=== PATIENT | female | born 1950 | race African-American/Black ===

== ENCOUNTER 2016-08-09 15:46 | Inpatient (IN) | payer OTHER ==
[~2016-08-09] VITALS: Ht 160 cm; Wt 78.9 kg
--- NOTE | ~2016-08-09 | EKG ---
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 : 1950 Requested By: Juliana Salter Order Number: [id number] MD: Gray Carlson Measurements Intervals [place] Rate: 85 P: 42 AR: 156 QRS: 216 QRSD: 129 T: 35 QT: 479 QTc: 570 Interpretive Statements Atrial-sensed ventricular-paced rhythm No further analysis attempted due to paced rhythm Compared to ECG 04/28/2016 10:46:34 No significant changes Electronically Signed On 08-11-2016 15:14:55 CDT by Gray Carlson [email or web address] <ELECTRONICALLY SIGNED> By: Gray Carlson MD, [facility] 08/11/16 1514 0807 0807 Gray Carlson MD, [facility] /EPI
--- NOTE | ~2016-08-09 | EKG ---
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 08/11/16 1508 1646 1646 Gray Carlson MD, [facility] /EPI
--- NOTE | ~2016-08-09 | HC ---
[facility] [place] [address] CONSULTATION Name: SULEIMAN MOROCHO Room #: 204-P ADM IN M.R.#: [id number] Admission: 08/09/16 Attend Phys: Dg Huizar MD Discharge: Date of : 50 Report #: [id number] THIS REPORT FOR: //name// CC: Dg Farah HISTORY OF PRESENT ILLNESS: The patient is a 65-year-old female, who is followed by my partner, Dr. Gray Carlson. She is admitted with a month history of recurrent bronchitis and now possibly some volume overload. 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 She has had long hospitalizations dating back to late last year, at the end of March. She has been in a fpc and then was home here recently. She does have a history of paroxysmal AFib, was previously anticoagulated, but not currently. She has BiV pacer and has prior cardioversion. Acute on chronic systolic failure with EF reportedly 30% range and is felt to be nonischemic. Underlying COPD, chronic kidney disease by history. Her medications have questionable some compliance issues with torsemide, which was 40 in the morning and possibly another 20 in the afternoon at times she would not, metolazone, amiodarone was unclear, Aldactone 50 mg total, Coreg 3.125 b.i.d. She tries to watch her salt and fluid, but I guess this is probably marginal. In compliance catheterization in 02/2016, normal coronary arteries. Ejection fraction was in the 30% range. She had a DON cardioversion done 04/09/2016, EF was felt to be even lower in 20% to 25%, dilated atrium. She had been fairly well compliant. She lives completely independently. She has one estranged daughter and she states she was never . FAMILY HISTORY: Positive including her mother and father with coronary artery disease, but could not be more specific. SOCIAL HISTORY: No current alcohol or tobacco. She lives alone. She has one daughter and never . REVIEW OF SYSTEMS: Essentially negative except for stated above and has progressive weakness, dyspnea, cough; has been treated with antibiotics and cough syrup. LABORATORY WORK: Sodium 136, potassium 2.6 being corrected, creatinine 1.2, BUN 10. Liver function tests look relatively normal. Troponin was 0.9, this is not significant. BNP 5300, probably not far off of her baseline, this was higher previously. Does not look like she is on Coumadin, which she denies that she is. H and H 11.7 and 35 with a white count 4.5. Chest x-ray suggests cardiomegaly and volume overload. PHYSICAL EXAMINATION: VITAL SIGNS: Her pulse is 76, blood pressure 140/86. HEENT: Eyes reveal xanthelasmas. Pharynx is clear. [address] [address] CONSULTATION Name: SULEIMAN MOROCHO Room #: 204-P [facility] IN M.R.#: [id number] Admission: 08/09/16 Attend Phys: Dg Huizra MD Discharge: Date of : 50 Report #: [id number] NECK: Shows preserved upstrokes. I do not appreciate significant JVD or bruits. LUNGS: Few fine basilar crackles, diminished in the bases. CARDIOVASCULAR: Regular rate and rhythm, S1 and S2, holosystolic murmur. ABDOMEN: Soft, slightly protuberant. EXTREMITIES: Reveal trace of edema. Pulses diminished. NEUROLOGIC: Nonfocal. SKIN: Warm and dry without xanthoma or ulcer. MUSCULOSKELETAL: Generalized arthritic changes. ASSESSMENT: 1. Acute on chronic systolic heart failure. 2. Recurrent bronchitis. 3. Nonischemic dilated cardiomyopathy, normal coronary anatomy on a catheterization in February 2016. 4. Some question of orthostatic hypotension, had been previously on midodrine, this is of question currently, obviously needs diuresis and afterload reducers. 5. Degenerative joint disease. 6. Chronic kidney disease. 7. Hypokalemia, currently on replacement. 8. Paroxysmal atrial fibrillation. 9. Orthostatic hypotension. RECOMMENDATIONS AND PLAN: I agree with the diuresis. We will possibly continue midodrine. I think we will have to reevaluate the need for Coumadin here and anticoagulation. Risks, benefits to her is not clear why this was stopped. We will discuss with Dr. Carlson, who may have a better handle since he is more recently seen her. We will admit to the CCU for IV Lasix. Could consider repeating the echo Doppler, although I suspect he will not look significantly different. Continue to follow with you. <ELECTRONICALLY SIGNED> By: Faraz Toney MD, FACC 08/12/16 [phone] Faraz Toney MD, FACC /nt
[~2016-08-09 15:46] MED LIST: ADULT LOW DOSE81 MG PO; ADVAIR 250-501 EACH INH; ADVAIR HFA 45-218 GM IH; ADVAIR HFA115 MCG/21 INH; ALDACTONE25 MG PO; ALDACTONE50 MG PO; ALTACE10 M1 PO; ALTACE10 MG PO; AMARYL4 MG PO; ASPIR 8181 MG PO; ASPIRIN EC325 M1 PO; ASPIRIN EC81 M1 PO; CARVEDILOL25 MG PO; CARVEDILOL6.25 MG PO; COLACE100 MG PO; COMBIVENT INH; COREG; COREG CR20 MG PO; COREG3.125 MG PO; COUMADIN 3 MG TA3 M1 PO; DEMADEX20 MG PO; FISH OIL 1,0001 EAC5 PO; FLOMAX0.4 MG PO; FUROSEMIDE 40 M40 M1 PO; GARLIC OIL1 EACH PO; GARLIC PO; HUMALOG100 UNIT/1 SUBQ; HUMULINR100; HUMULINU500; HUMULINU500 SUBQ; HYDROCODONE-AP1 EAC6 PO; IBUPROFEN 800800 MG PO; JANUVIA100 MG PO; K-TAB ER20 MEQ PO; KEFLEX500 MG PO; LANOXIN 0.120.125 M3 PO; LANOXIN 0.250.25 M1 PO; LANSOPRAZOLE30 MG PO; LANTUS SC; LANTUS SOL100 UNIT/1 SQ; LANTUS SUBQ; LANTUS100 UNIT/M SUBQ; LASIX 40 MG TAB40 M2 PO; LEVAQUIN 500 M500 MG PO; LEVEMIR SUBQ; LUMIGAN2.5 M1 OP; LUMIGAN2.5 M1 OPHTHALMIC; METOCLOPRAMIDE 55 M1 PO; METOLAZONE 2.52.5 MG PO; MIDODRINE HCL 55 M1 PO; MUCINEX TA600 MG/TA1 PO; MUCINEX600 MG PO; NATURAL VITA100 UNIT PO; NEURONTIN 300300 M1 PO; NOVOLIN R100 UNIT/3 IJ; NOVOLOG100 UNIT/1 SUBQ; ODOR FREE GARL1 EAC1 PO; ODORLESS GARLI500 MG PO; OMEGA-3 FISH1000 MG PO; PACERONE 200 M200 M1 PO; PACERONE 200 M200 MG PO; PEPCID20 MG PO; PERCOCET PO; POTASSIUM20 PO; PREVACID15 MG PO; PREVACID30 M1 PO; PREVACID30 MG PO; PROVENTIL HFA6.7 G1 INH; REMERON15 MG PO; SIMETHICON CHEW80 M1 PO; SYMBICORT160 MCG/4. INH; TYLENOL325 MG PO; VENTOLIN HFA 1818 GM INH; VITAMIN E400 UNIT PO; ZOFRAN ODT4 MG PO; ZYRTEC10 M2 PO; [UNRECOGNIZED DRUG - OTHER] IV; [UNRECOGNIZED DRUG - OTHER] MM
[2016-08-09 15:53] VITALS: BP 142/86
[2016-08-09 17:20] LABS: ABSOLUTE NEUTROPHILS 3.3 thou/uL (1.4-8.2); BASOPHILS 0.8 % (0.0-2.0); EOSINOPHILS 1.3 % (0.0-3.0); HEMATOCRIT 35.1 % (37.0-47.0); HEMOGLOBIN 11.7 gm/dL (12.0-15.0); LYMPHOCYTES 14.3 % (24.0-44.0); MCH 28.7 pg (26.0-34.0); MCHC 33.2 g/dL (28.0-37.0); MCV 86.4 fL (80.0-100.0); MONOCYTES 10.9 % (1.0-8.0); PLATELET COUNT 196 thou/uL (150-400); POLYS 72.7 % (36.0-66.0); RBC 4.06 mil/uL (4.20-5.00); RDW 15.2 % (10.5-14.5); WBC 4.5 thou/uL (4.0-11.0)
[2016-08-09 17:21] LABS: MANUAL DIFF NO
[2016-08-09 17:37] LABS: ALBUMIN 3.2 g/dL (3.4-5.0); CALCIUM 8.6 mg/dL (8.5-10.1); CREATININE 1.2 mg/dL (0.6-1.3); TOTAL BILIRUBIN 0.9 mg/dL (<0.1-1.0); TOTAL PROTEIN 7.2 g/dL (6.4-8.2)
[2016-08-09 17:45] LABS: POTASSIUM 2.6 mmol/L (3.5-5.1); TROPONIN-I 0.9 ng/mL (<0.04-0.07)
[2016-08-09 18:08] LABS: INR 1.1; PROTIME 11.4 Seconds (9.3-11.4)
[2016-08-09 19:41] VITALS: BP 118/81
[2016-08-09 20:14] VITALS: BP 126/83
[2016-08-09 23:42] VITALS: BP 126/69
[2016-08-10] MEDS ORDERED: ALTACE10 MG PO (02:22)
[2016-08-10] MEDS ORDERED: MUCINEX TA600 MG/TA2 PO (02:23)
[2016-08-10 04:36] VITALS: BP 123/86
[2016-08-10] MEDS ORDERED: DIGOXIN250 MCG PO (05:17)
[2016-08-10 06:36] LABS: HEMATOCRIT 34.4 % (37.0-47.0); HEMOGLOBIN 11.3 gm/dL (12.0-15.0); MCH 28.8 pg (26.0-34.0); MCV 87.4 fL (80.0-100.0); RBC 3.94 mil/uL (4.20-5.00); RDW 15.1 % (10.5-14.5); WBC 3.3 thou/uL (4.0-11.0)
[2016-08-10 08:00] VITALS: BP 123/74
[2016-08-10 08:12] LABS: CALCIUM 8.7 mg/dL (8.5-10.1); CREATININE 1.2 mg/dL (0.6-1.3); POTASSIUM 3.4 mmol/L (3.5-5.1)
[2016-08-10 11:40] VITALS: BP 122/73
[2016-08-10 15:44] VITALS: BP 137/83
[2016-08-10 19:43] VITALS: BP 107/72
[2016-08-11 05:34] VITALS: BP 112/78
[2016-08-11 06:23] LABS: HEMATOCRIT 37.4 % (37.0-47.0); HEMOGLOBIN 12.2 gm/dL (12.0-15.0); MCH 28.4 pg (26.0-34.0); MCHC 32.6 g/dL (28.0-37.0); MCV 87.2 fL (80.0-100.0); RBC 4.29 mil/uL (4.20-5.00); RDW 15.7 % (10.5-14.5); WBC 4.4 thou/uL (4.0-11.0)
[2016-08-11 06:29] LABS: CALCIUM 9.1 mg/dL (8.5-10.1); CREATININE 1.3 mg/dL (0.6-1.3)
[2016-08-11 06:32] LABS: POTASSIUM 5.1 mmol/L (3.5-5.1)
[2016-08-11 08:01] VITALS: BP 103/69
[2016-08-11] MEDS ORDERED: LANTUS100 UNIT/M SUBQ (10:29)
[2016-08-11] MEDS ORDERED: HUMULIN R100 UNIT/M SUBQ (10:33)
[2016-08-11 11:23] VITALS: BP 121/83
[2016-08-11 15:21] VITALS: BP 80/49
[2016-08-11 20:01] VITALS: BP 121/73
[2016-08-12 03:15] VITALS: BP 106/28
[2016-08-12 05:26] LABS: MCH 28.5 pg (26.0-34.0); MCHC 32.4 g/dL (28.0-37.0); MCV 87.8 fL (80.0-100.0); RBC 4.22 mil/uL (4.20-5.00); RDW 15.2 % (10.5-14.5); WBC 4.5 thou/uL (4.0-11.0)
[2016-08-12 05:34] LABS: CALCIUM 8.9 mg/dL (8.5-10.1); CREATININE 1.9 mg/dL (0.6-1.3); POTASSIUM 4.5 mmol/L (3.5-5.1)
[2016-08-12 05:39] LABS: INR 1.2; PROTIME 12.6 Seconds (9.3-11.4)
[2016-08-12 08:29] VITALS: BP 121/79
[2016-08-12 12:29] VITALS: BP 107/72
[2016-08-12 17:10] VITALS: BP 107/72
[2016-08-12 19:33] VITALS: BP 99/61
[2016-08-13 03:54] VITALS: BP 118/77
[2016-08-13 07:20] VITALS: BP 103/65
[2016-08-13 08:11] LABS: HEMATOCRIT 38.2 % (37.0-47.0); HEMOGLOBIN 12.5 gm/dL (12.0-15.0); MCH 28.4 pg (26.0-34.0); MCHC 32.7 g/dL (28.0-37.0); MCV 87.1 fL (80.0-100.0); RBC 4.39 mil/uL (4.20-5.00); RDW 15.6 % (10.5-14.5); WBC 3.7 thou/uL (4.0-11.0)
[2016-08-13 08:21] LABS: CALCIUM 9.5 mg/dL (8.5-10.1); CREATININE 1.9 mg/dL (0.6-1.3); POTASSIUM 4.4 mmol/L (3.5-5.1)
[2016-08-13 08:25] LABS: INR 1.3; PROTIME 13.1 Seconds (9.3-11.4)
[2016-08-13 11:30] VITALS: BP 106/70
[2016-08-13 16:45] VITALS: BP 117/60
[2016-08-13 19:33] VITALS: BP 129/73
[2016-08-14 05:33] VITALS: BP 105/65
[2016-08-14 07:09] LABS: HEMATOCRIT 33.9 % (37.0-47.0); HEMOGLOBIN 11.3 gm/dL (12.0-15.0); MCH 28.6 pg (26.0-34.0); MCHC 33.2 g/dL (28.0-37.0); MCV 86.2 fL (80.0-100.0); RBC 3.94 mil/uL (4.20-5.00); RDW 15.1 % (10.5-14.5); WBC 3.2 thou/uL (4.0-11.0)
[2016-08-14 07:25] LABS: CALCIUM 9.2 mg/dL (8.5-10.1); CREATININE 2.1 mg/dL (0.6-1.3); POTASSIUM 4.5 mmol/L (3.5-5.1)
[2016-08-14 07:45] LABS: INR 1.2; PROTIME 12.7 Seconds (9.3-11.4)
[2016-08-14] MEDS ORDERED: DEMADEX20 MG PO (08:19)
[2016-08-14] MEDS ORDERED: METOLAZONE 2.52.5 MG PO (08:19)
[2016-08-14 11:45] VITALS: BP 113/79
[2016-08-14 13:39] VITALS: BP 105/65
[2016-08-14 13:58] VITALS: BP 105/65
== END 2016-08-14 17:08 | disposition home health service (06) | DRG 291 ==
LOC: ER 15:46 → EROBS 18:34 → 2N 18:34
PROVIDERS: Hospitalist; Internal Medicine; Internal Medicine Cardiovascular Disease; Nurse Practitioner Family
DX: I13.0 Hypertensive heart and chronic kidney disease with heart failure and stage 1 through stage 4 chronic kidney disease, or unspecified chronic kidney disease (principal); I50.23 Acute on chronic systolic (congestive) heart failure; J96.10 Chronic respiratory failure, unspecified whether with hypoxia or hypercapnia; E11.65 Type 2 diabetes mellitus with hyperglycemia; J44.9 Chronic obstructive pulmonary disease, unspecified; E11.40 Type 2 diabetes mellitus with diabetic neuropathy, unspecified; H40.9 Unspecified glaucoma; I42.0 Dilated cardiomyopathy; I48.0 Paroxysmal atrial fibrillation; N18.9 Chronic kidney disease, unspecified; E11.22 Type 2 diabetes mellitus with diabetic chronic kidney disease; E87.6 Hypokalemia; M19.90 Unspecified osteoarthritis, unspecified site; I95.1 Orthostatic hypotension; K59.00 Constipation, unspecified; E66.9 Obesity, unspecified; Z68.30 Body mass index [BMI] 30.0-30.9, adult; Z98.1 Arthrodesis status; Z95.810 Presence of automatic (implantable) cardiac defibrillator; Z90.710 Acquired absence of both cervix and uterus; Z91.018 Allergy to other foods; Z88.8 Allergy status to other drugs, medicaments and biological substances; Z91.048 Other nonmedicinal substance allergy status; Z91.040 Latex allergy status; Z82.49 Family history of ischemic heart disease and other diseases of the circulatory system; Z83.3 Family history of diabetes mellitus; Z79.01 Long term (current) use of anticoagulants; Z79.4 Long term (current) use of insulin; Z79.82 Long term (current) use of aspirin; Z79.899 Other long term (current) drug therapy
CPT/HCPCS: 10081

== ENCOUNTER 2016-09-25 12:08 | Inpatient (IN) | payer OTHER ==
[~2016-09-25] VITALS: Ht 157.5 cm; Wt 77.9 kg
--- NOTE | ~2016-09-25 | EKG ---
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
--- NOTE | ~2016-09-25 | S ---
[facility] [place] [address] SURGICAL PATH RPT PROCEDURE Name: SULEIMAN MOROCHO LUIS Room #: 452-P DIS IN M.R.#: [id number] Admission: 09/25/16 Date of : 50 Discharge: 10/03/16 Report #: [id number] Path Case #: [id number] PATHOLOGY REPORT COLLECTION DATE: 10/01/2016 RECEIVED DATE: 10/02/2016 SUBMITTING PHYS: Dr. Frannie Purdy OTHER PHYS: Dr. Chau Mcdonald SPECIMEN(S) RECEIVED: A.Duodenal bx B.Gastric bx * * * * * * * * * * * * FINAL DIAGNOSIS: A. "Duodenal bx," biopsy: - Small bowel / duodenal mucosa with minimal histologic alterations; no evidence of celiac sprue. B. "Gastric bx," biopsy: - Gastric mucosa with mild chronic gastritis. - Negative H. pylori immunohistochemical stain (block B1); control reacted appropriately. (CLW:; d/t: 10/04/16) PATHOLOGIST: Leticia Harrison M.D. REPORT ELECTRONICALLY SIGNED BY: Leticia Harrison M.D. DATE/TIME: 10/04/2016 14:01 * * * * * * * * * * * * GROSS PATHOLOGY: A. Received in formalin labeled "Suleiman Chambersbrian duodenal biopsy," are 4 segments of yañez soft tissue measuring 0.9 x 0.6 x 0.3 cm in aggregate dimensions and ranging from 0.3 to 0.4 cm in maximum dimension. The specimen is submitted entirely in cassette A1. B. Received in formalin labeled "Suleiman Morocho, gastric biopsy," are 4 segments of yañez soft tissue measuring 0.6 x 0.6 x 0.3 cm in aggregate dimensions and ranging from 0.2 to 0.6 cm in maximum dimension. The specimen is submitted entirely in cassette B1. (KAH; 10/03/2016) CLINICAL HISTORY: N/V, abdominal pain INITIAL CPT CODE(S): [address] [address] SURGICAL PATH RPT PROCEDURE Name: SULEIMAN MOROCHO Room #: 452-P DIS IN M.R.#: [id number] Admission: 09/25/16 Date of : 50 Discharge: 10/03/16 Report #: [id number] Path Case #: [id number]; [id number] B; [id number] Professional services performed by [facility] at [address] , [place] [address] Technical services performed by [facility] at [address] [place] [address], [facility] [address] [address]. [facility] [address] [place] [address] PHONE: [phone] DIRECTOR: Zeus Estrada M.D. * * * END OF REPORT * * *
--- NOTE | ~2016-09-25 | P ---
[facility] [place] [address] PROCEDURE REPORT Name: SULEIMAN MOROCHOTH Room #: 452-P [facility] IN M.R.#: [id number] Admission: 09/25/16 Attend Phys: Luis Miguel Lechuga MD Discharge: 10/03/16 Date of : 50 Report #: [id number] THIS REPORT FOR: //name// CC: Agustín Perez DATE OF SERVICE: 10/01/2016 PROCEDURE PERFORMED: Upper endoscopy with biopsies. HISTORY OF PRESENT ILLNESS: The patient is a 66-year-old female with nausea, vomiting, abdominal pain. She has had a long history of this. During this hospital stay, she underwent a gastric emptying study, which was normal. Also, ultrasound with Dopplers were negative. Last upper endoscopy a couple of years ago. Plan is for EGD. DESCRIPTION OF PROCEDURE: The risks and benefits of the procedure were explained to the patient, those risks including but not limited to bleeding, perforation, the risk of sedation. She understood these risks and gave informed consent. Sedation was given using propofol per anesthesia. Next, using a standard [employer] upper endoscope, the scope was placed in the patient's mouth and advanced under direct vision through the esophagus, stomach and into the second portion of the duodenum. The esophagus was normal throughout. The GE junction was normal. There was a moderate gastritis noted in the fundus and upper body. No evidence of bleeding or ulcerations. Biopsies were obtained to rule out H. pylori. The gastric antrum and pylorus were normal. There was a small amount of fluid within the stomach, but no food material. The duodenal bulb, first and second portion were all normal. Biopsies were obtained in the second portion to rule out the possibility of celiac sprue. The scope was then withdrawn and the procedure terminated. The patient tolerated the procedure well. IMPRESSION: 1. Moderate gastritis. 2. Otherwise, normal upper endoscopy. RECOMMENDATIONS: 1. The patient was just started on Reglan recently before meals in the evening, would continue this. 2. We will switch from Pepcid to Protonix. 3. Await biopsy results and we will advance diet as tolerated. [address] [address] PROCEDURE REPORT Name: SULEIMAN MOROCHO Room #: 452-P DIS IN M.R.#: [id number] Admission: 09/25/16 Attend Phys: Luis Miguel Lechuga MD Discharge: 10/03/16 Date of : 50 Report #: [id number] Thank you for allowing me to participate in her care. <ELECTRONICALLY SIGNED> By: Wei Miranda MD 10/05/16 0952 1355 1600 Wei Miranda MD /nt
[~2016-09-25 12:08] MED LIST changes: +DIGOXIN250 MCG PO; +HUMULIN R100 UNIT/M SUBQ; +MUCINEX TA600 MG/TA2 PO
[2016-09-25 12:09] VITALS: BP 166/102
[2016-09-25 13:57] LABS: HEMATOCRIT 29.8 % (37.0-47.0); HEMOGLOBIN 8.9 gm/dL (12.0-15.0); MCH 28.2 pg (26.0-34.0); MCHC 29.7 g/dL (28.0-37.0); RBC 3.14 mil/uL (4.20-5.00); RDW 14.8 % (10.5-14.5); WBC 2.5 thou/uL (4.0-11.0)
[2016-09-25 13:59] LABS: URINE BILIRUBIN NEGATIVE (Negative); URINE BLOOD TRACE (Negative); URINE COLOR YELLOW; URINE GLUCOSE-RANDOM* NEGATIVE (Negative); URINE KETONES NEGATIVE (Negative); URINE LEUKOCYTES-REFLEX NEGATIVE (Negative); URINE PROTEIN (DIPSTICK) TRACE (Negative); URINE SPECIFIC GRAVITY 1.015 (1.003-1.035); URINE UROBILINOGEN 0.2 E.U./dl (0.2-1.0)
[2016-09-25 14:00] LABS: MANUAL DIFF YES
[2016-09-25 14:12] LABS: APTT 45.6 Seconds (24.5-32.8); INR 1.4; PROTIME 14.1 Seconds (9.3-11.4)
[2016-09-25 14:17] LABS: BUN 26 mg/dL (7-18); CHLORIDE 83 mmol/L (98-107); CO2 15 mmol/L (21-32); CREATININE 1.5 mg/dL (0.6-1.0); NT-PRO BRAIN NAT PEPTIDE 1154 pg/mL (<300); TROPONIN-I 0.51 ng/mL (<0.04-0.07)
[2016-09-25 14:19] LABS: ANION GAP 9 mmol/L (7-16)
[2016-09-25 14:25] LABS: POTASSIUM 2.3 mmol/L (3.5-5.1)
[2016-09-25 14:26] LABS: CALCIUM < 5.0 mg/dL (8.5-10.1); SODIUM 107 mmol/L (136-145)
[2016-09-25 14:37] LABS: ABSOLUTE NEUTROPHILS 1.8 thou/uL (1.4-8.2); PLATELET COUNT 98 thou/uL (150-400); TOTAL CELL COUNT 100
[2016-09-25 14:48] LABS: GLUCOSE 1917 mg/dL (74-106)
[2016-09-25 15:31] LABS: CREATININE 1.4 mg/dL (0.6-1.0)
[2016-09-25 15:33] LABS: CALCIUM 8.1 mg/dL (8.5-10.1); POTASSIUM 4.5 mmol/L (3.5-5.1)
[2016-09-25 17:38] VITALS: BP 127/70
[2016-09-25 18:25] VITALS: BP 134/75
[2016-09-25 19:18] LABS: HEMATOCRIT 39.9 % (37.0-47.0); MCH 27.5 pg (26.0-34.0); MCHC 33.6 g/dL (28.0-37.0); RBC 4.87 mil/uL (4.20-5.00); RDW 14.5 % (10.5-14.5); WBC 5.3 thou/uL (4.0-11.0)
[2016-09-25 19:22] VITALS: BP 143/86
[2016-09-25 19:26] LABS: HEMOGLOBIN 13.4 gm/dL (12.0-15.0); MCV 81.9 fL (80.0-100.0)
[2016-09-25 19:41] LABS: ALBUMIN 3.5 g/dL (3.4-5.0); CALCIUM 8.2 mg/dL (8.5-10.1); CREATININE 1.5 mg/dL (0.6-1.0); POTASSIUM 4.9 mmol/L (3.5-5.1); TOTAL BILIRUBIN 0.5 mg/dL (<0.1-1.0); TOTAL PROTEIN 7.3 g/dL (6.4-8.2)
[2016-09-25 23:52] VITALS: BP 116/58
[2016-09-26 03:58] VITALS: BP 137/72
[2016-09-26 07:00] VITALS: BP 157/91
[2016-09-26 20:15] VITALS: BP 165/95
[2016-09-27 00:04] VITALS: BP 159/91
[2016-09-27 05:00] VITALS: BP 115/51
[2016-09-27 06:07] LABS: HEMATOCRIT 38.7 % (37.0-47.0); MCH 27.5 pg (26.0-34.0); MCHC 33.5 g/dL (28.0-37.0); MCV 82.1 fL (80.0-100.0); PLATELET COUNT 155 thou/uL (150-400); RBC 4.72 mil/uL (4.20-5.00); RDW 14.5 % (10.5-14.5); WBC 7.9 thou/uL (4.0-11.0)
[2016-09-27 06:15] LABS: CALCIUM 8.7 mg/dL (8.5-10.1); CREATININE 1.4 mg/dL (0.6-1.0); MANUAL DIFF YES; POTASSIUM 5.4 mmol/L (3.5-5.1)
[2016-09-27 07:28] LABS: ABSOLUTE NEUTROPHILS 6.4 thou/uL (1.4-8.2); TOTAL CELL COUNT 100
[2016-09-27 07:29] LABS: ANISOCYTOSIS SLIGHT
[2016-09-27 09:04] VITALS: BP 137/81
[2016-09-27 12:20] VITALS: BP 136/78
[2016-09-27 14:36] VITALS: BP 136/78
[2016-09-27 19:25] VITALS: BP 120/66
[2016-09-28 03:57] VITALS: BP 121/60
[2016-09-28 05:39] LABS: HEMATOCRIT 38.7 % (37.0-47.0); MCH 27.7 pg (26.0-34.0); MCHC 33.7 g/dL (28.0-37.0); MCV 82.1 fL (80.0-100.0); PLATELET COUNT 122 thou/uL (150-400); RBC 4.71 mil/uL (4.20-5.00); RDW 15.2 % (10.5-14.5); WBC 7.4 thou/uL (4.0-11.0)
[2016-09-28 05:41] LABS: MANUAL DIFF YES
[2016-09-28 06:13] LABS: ALBUMIN 3.5 g/dL (3.4-5.0); CALCIUM 8.3 mg/dL (8.5-10.1); CREATININE 1.8 mg/dL (0.6-1.0); MAGNESIUM 1.8 mg/dL (1.8-2.4); POTASSIUM 4.8 mmol/L (3.5-5.1); TOTAL BILIRUBIN 0.8 mg/dL (<0.1-1.0); TOTAL PROTEIN 7.3 g/dL (6.4-8.2)
[2016-09-28 07:05] LABS: ABSOLUTE NEUTROPHILS 5.2 thou/uL (1.4-8.2); ANISOCYTOSIS 1+; TOTAL CELL COUNT 100
[2016-09-28 07:08] VITALS: BP 99/72
[2016-09-28 12:14] VITALS: BP 107/63
[2016-09-28 16:49] VITALS: BP 114/62
[2016-09-28 19:23] VITALS: BP 102/62
[2016-09-29 03:42] VITALS: BP 105/65
[2016-09-29 05:24] LABS: HEMATOCRIT 37.1 % (37.0-47.0); HEMOGLOBIN 12.3 gm/dL (12.0-15.0); MCH 27.4 pg (26.0-34.0); MCV 82.9 fL (80.0-100.0); RBC 4.48 mil/uL (4.20-5.00); RDW 15.2 % (10.5-14.5); WBC 7.4 thou/uL (4.0-11.0)
[2016-09-29 05:43] LABS: ALBUMIN 3.4 g/dL (3.4-5.0); CALCIUM 8.4 mg/dL (8.5-10.1); PHOSPHORUS 3.6 mg/dL (2.5-4.9); POTASSIUM 4.7 mmol/L (3.5-5.1)
[2016-09-29 08:10] VITALS: BP 84/45
[2016-09-29 12:15] VITALS: BP 108/68
[2016-09-29 16:19] VITALS: BP 125/70
[2016-09-29 19:32] VITALS: BP 95/48
[2016-09-29 23:35] VITALS: BP 97/52
[2016-09-30 03:43] VITALS: BP 108/57
[2016-09-30 06:39] LABS: ALBUMIN 3.1 g/dL (3.4-5.0); CALCIUM 8.7 mg/dL (8.5-10.1); CREATININE 2.4 mg/dL (0.6-1.0); PHOSPHORUS 4.2 mg/dL (2.5-4.9); POTASSIUM 4.9 mmol/L (3.5-5.1)
[2016-09-30 07:12] VITALS: BP 135/72
[2016-09-30 11:18] VITALS: BP 1122/77
[2016-09-30 17:12] VITALS: BP 140/65
[2016-09-30 19:20] VITALS: BP 120/59
[2016-10-01 03:45] VITALS: BP 127/57
[2016-10-01 06:06] LABS: HEMOGLOBIN 10.9 gm/dL (12.0-15.0); MCH 27.3 pg (26.0-34.0); MCV 82.9 fL (80.0-100.0); PLATELET COUNT 132 thou/uL (150-400); RBC 3.98 mil/uL (4.20-5.00); RDW 14.8 % (10.5-14.5); WBC 4.6 thou/uL (4.0-11.0)
[2016-10-01 06:16] LABS: MANUAL DIFF YES
[2016-10-01 06:25] LABS: ALBUMIN 2.9 g/dL (3.4-5.0); CALCIUM 8.4 mg/dL (8.5-10.1); POTASSIUM 4.7 mmol/L (3.5-5.1); TOTAL BILIRUBIN 0.4 mg/dL (<0.1-1.0); TOTAL PROTEIN 6.9 g/dL (6.4-8.2)
[2016-10-01 06:34] LABS: CREATININE 1.4 mg/dL (0.6-1.0)
[2016-10-01 07:17] VITALS: BP 103/40
[2016-10-01 08:03] LABS: ABSOLUTE NEUTROPHILS 2.8 thou/uL (1.4-8.2); TOTAL CELL COUNT 100
[2016-10-01 08:04] LABS: ANISOCYTOSIS 1+; OVALOCYTES FEW
[2016-10-01 12:52] VITALS: BP 139/78
[2016-10-01 16:48] VITALS: BP 140/78
[2016-10-01 21:24] VITALS: BP 132/88
[2016-10-02 04:16] VITALS: BP 119/65
[2016-10-02 07:21] VITALS: BP 98/57
[2016-10-02 12:08] VITALS: BP 117/66
[2016-10-02 15:00] VITALS: BP 112/50
[2016-10-02 19:32] VITALS: BP 125/68
[2016-10-03 05:02] VITALS: BP 120/57
[2016-10-03] MEDS ORDERED: CARAFATE 11 GM/10 M1 PO (07:48)
[2016-10-03] MEDS ORDERED: NEXIUM40 MG PO (07:48)
[2016-10-03] MEDS ORDERED: ALTACE5 MG PO (07:48)
[2016-10-03] MEDS ORDERED: ALDACTONE25 MG PO (07:48)
[2016-10-03] MEDS ORDERED: REGLAN 10 MG TA10 MG PO (07:57)
[2016-10-03 08:34] VITALS: BP 107/58
[2016-10-03 10:06] VITALS: BP 136/78
[2016-10-03 12:30] VITALS: BP 103/51
[2016-10-03 12:37] VITALS: BP 136/78
== END 2016-10-03 16:13 | disposition home health service (06) | DRG 637 ==
LOC: ER 12:08 → EROBS 15:12 → 4W 15:12
PROVIDERS: Emergency Medicine; Hospitalist; Internal Medicine Geriatric Medicine; Nurse Practitioner Family
PROC: 0DB98ZZ Excision of Duodenum, Via Natural or Artificial Opening Endoscopic (ICD-10-PCS; principal; 2016-10-01)
PROC: 0DB68ZZ Excision of Stomach, Via Natural or Artificial Opening Endoscopic (ICD-10-PCS; principal; 2016-10-01)
DX: E11.649 Type 2 diabetes mellitus with hypoglycemia without coma (principal); G93.40 Encephalopathy, unspecified; I13.0 Hypertensive heart and chronic kidney disease with heart failure and stage 1 through stage 4 chronic kidney disease, or unspecified chronic kidney disease; I42.9 Cardiomyopathy, unspecified; N17.9 Acute kidney failure, unspecified; I50.9 Heart failure, unspecified; J44.9 Chronic obstructive pulmonary disease, unspecified; E66.9 Obesity, unspecified; H40.9 Unspecified glaucoma; E11.42 Type 2 diabetes mellitus with diabetic polyneuropathy; K29.70 Gastritis, unspecified, without bleeding; G47.30 Sleep apnea, unspecified; T68.XXXA Hypothermia, initial encounter; I25.10 Atherosclerotic heart disease of native coronary artery without angina pectoris; K59.00 Constipation, unspecified; E87.5 Hyperkalemia; I95.9 Hypotension, unspecified; E87.6 Hypokalemia; Z82.49 Family history of ischemic heart disease and other diseases of the circulatory system; Z90.710 Acquired absence of both cervix and uterus; Z88.6 Allergy status to analgesic agent; Z95.0 Presence of cardiac pacemaker; Z68.31 Body mass index [BMI] 31.0-31.9, adult; Z91.018 Allergy to other foods; Z88.8 Allergy status to other drugs, medicaments and biological substances; Z91.040 Latex allergy status; Z90.49 Acquired absence of other specified parts of digestive tract; Z91.19 Patient's noncompliance with other medical treatment and regimen; Z83.3 Family history of diabetes mellitus
CPT/HCPCS: 10047; 62110; 62900; 70005

== ENCOUNTER 2017-01-12 16:48 | Inpatient (IN) | payer OTHER ==
[~2017-01-12] VITALS: Ht 157.5 cm; Wt 72.6 kg
--- NOTE | ~2017-01-12 | HC ---
[facility] [address] CONSULTATION Name: SULEIMAN MOROCHO Room #: 463-P [facility] IN M.R.#: [id number] Admission: 01/12/17 Attend Phys: Dg Huizar MD Discharge: 01/17/17 Date of : 50 Report #: [id number] THIS REPORT FOR: //name// CC: Dg Farah DATE OF SERVICE: 01/17/2017 ENDOCRINE PROGRESS NOTE Glucoses is stable without needing any hypoglycemics. FBS normal at 101. Highest glucose for past day equals 161 at 2200 hours. We will continue current regimen. <ELECTRONICALLY SIGNED> By: Mitesh Alicia MD 01/20/17 1102 1045 1417 Mitesh Alicia MD /nt
--- NOTE | ~2017-01-12 | HC ---
[facility] [place] [address] CONSULTATION Name: SULEIMAN MOROCHO Room #: 463-P ADM IN M.R.#: [id number] Admission: 01/12/17 Attend Phys: Dg Huizar MD Discharge: Date of : 50 Report #: [id number] THIS REPORT FOR: //name// CC: Mitesh Abarcaen Gagan DATE OF SERVICE: 01/14/2017 PATIENT OF: Dr. Dg Huizar. LOCATION: [facility], room #436. HISTORY OF PRESENT ILLNESS: A 66-year-old black female admitted for change in mental status, hypothermia, etc. At that time, the patient was also found to be hypoglycemic. 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 She states that she had diabetes going back to before the 1980s and was on insulin since the late before it was discontinued earlier this year. The patient is not on a specific diet. She checks her sugar up to 3 times per day and feels that "normal" for her is a sugar of at least 100, and she feels that her sugar in the 70s or below is an emergency because this is what she was instructed when she was on chronic insulin therapy. Even with a prolonged discussion, I was unable to alter her conviction that these parameters needed to be remained enforced. There is some question as to whether the patient might have taken some insulin at home, but the patient states adamantly that she did not. She is not on any oral hypoglycemics. At the time of consultation, medications included torsemide, amiodarone, furosemide, guaifenesin, calcium, simethicone, loratadine, aspirin, spironolactone, lisinopril, carvedilol, midodrine, tamsulosin, enoxaparin, azithromycin, potassium chloride and possibly other medication. Otherwise, I am unable to obtain any prior or current endocrine history from the patient at this time. OBJECTIVE: LABORATORY DATA: Hemoglobin A1c 6.0, sodium 140, potassium 3.5, chloride 100, CO2 of 34, BUN 14, creatinine 1.1. Glucose was apparently low at admission but has been normal since that time. AST 35, amylase 55, lipase 179, bilirubin 0.9, calcium 8.9, phosphorus 4.2, magnesium 1.8, alkaline phosphatase 150, SGPT 19, total protein 7.3, albumin 3.1. PHYSICAL EXAMINATION: GENERAL: Well-nourished, well-developed 66-year-old black female in no acute distress. VITAL SIGNS: Height is reported to be 5 feet 2 inches, weight 160 pounds. The patient is afebrile, heart rate 85 and regular, blood pressure 137/65. [address] [address] CONSULTATION Name: SULEIMAN MOROCHOBETH Room #: 463-P ADM IN M.R.#: [id number] Admission: 01/12/17 Attend Phys: Dg Huizar MD Discharge: Date of : 50 Report #: [id number] LUNGS: Exam is prominent for a frequent cough. There are coarse breath sounds throughout. HEART: Regular rhythm without murmurs, rubs or gallops. ABDOMEN: Benign. EXTREMITIES: Show no edema, cyanosis or clubbing. Peripheral pulses 2+ and equal bilaterally. NEUROLOGIC: Grossly intact except for the patient's inability to understand the difference in blood sugar parameters depending on treatment modalities. The patient is clinically euthyroid by exam. ASSESSMENT: 1. Multiple medical problems including change in mental status, hypothermia, etc., that necessitated admission. 2. Diabetes mellitus, currently euglycemic with occasional mildly elevated blood sugars at home as high as 170 without oral or parenteral diabetes therapy. PLAN: 1. The patient's recent more significant hypoglycemic episode was undoubtedly due to infection, glucose demands and decreased mental status due to her clinical changes and was not to result of any hormonal changes. I cannot totally rule out the possibility that the patient did inappropriately take an insulin injection, but she states vehemently that she did not. Thyroid function is normal, and hemoglobin A1c of 6% shows the patient does not have any significant hyper or hypoglycemic episodes on a consistent basis in the past several months. 2. We will place the patient on appropriate diet and monitor glucose as needed. If blood sugars remain stable in an appropriate range, therapy for diabetes will not be instituted. The patient will only receive hypoglycemics. If blood sugar is consistently and significantly elevated, which is unlikely even with a current infection, inactivity, etc. 3. We will again attempt to discuss diabetes and glucose parameters with the patient, although it appears difficult at this time to change the patient's convictions about normal blood sugar range given the absence of diabetes therapy. Thank you very much for this consultation. I will continue to follow the patient with you for evaluation and management of blood sugar. <ELECTRONICALLY SIGNED> By: Mitesh Alicia MD 01/15/17 1109 1754 19 Mitesh Alicia MD /nt
--- NOTE | ~2017-01-12 | HC ---
[facility] [place] [address] CONSULTATION Name: SULEIMAN MOROCHO Room #: 463-P ADM IN M.R.#: [id number] Admission: 01/12/17 Attend Phys: Dg Huizar MD Discharge: Date of : 50 Report #: [id number] THIS REPORT FOR: //name// CC: Dg Farah DATE OF SERVICE: 01/15/2017 ENDOCRINE PROGRESS NOTE Glucose is stable without hypoglycemic agents. FBS lower at 85. Highest glucose past day equals 144 at 12:00. No further hypoglycemia again suggesting that prior episode was due to the metabolic effects of a prolonged period of fasting while the patient was unattended after whatever event took place prior to her being discovered in a decreased state of consciousness. We will continue to monitor glucose and only intervene if absolutely necessary. <ELECTRONICALLY SIGNED> By: Mitesh Alicia MD 01/16/17 1325 1112 191 Mitesh Alicia MD /nt
--- NOTE | ~2017-01-12 | 2DMMODE ---
[facility] [address] [place] [address] 2 D/M-MODE ECHOCARDIOGRAM Name: BAILEESULEIMAN SMITH Room #: 463-P ADM IN .R.#: [id number] Admission: 01/12/17 Attend Phys: Dg Huizar MD Discharge: Date of : 50 Date of Service: 01/15/17 1010 Report #: [id number] THIS REPORT FOR: //name// APPROVED REPORT Study performed: 01/15/2017 08:31:25 EXAM: Comprehensive 2D, Doppler, and color-flow Echocardiogram Patient Location: In-Patient Room #: 463 Status: routine BSA: 1.83 HR: 68 bpm BP: 131/81 mmHg Other Information Study Quality: Good Indications Dyspnea Hx DM, PM, HTN, COPD, CHF 2D Dimensions RVDd: 50.63 mm LVEF(%): 30.04 (>50%) IVSd: 10.54 (7-11mm) LVOT Diam: 19.81 (18-24mm) LVDd: 58.35 mm PWd: 10.70 (7-11mm) Ascending Ao: 30.27 (22-36mm) LVDs: 49.98 (25-40mm) Aortic Root: 32.07 mm IVC: 2.50 mm Lee's LVEF: 30.04 % Volumes Left Atrial Volume (Systole) Single Plane 4CH: 49.51 mL Single Plane 2CH: 72.58 mL LA ESV Index: 35.00 mL/m2 Aortic Valve AoV Peak Jonas.: 0.94 m/s AO Peak Gr.: 3.53 mmHg LVOT Max P.38 mmHg LVOT Max V: 0.59 m/s MICHAEL Vmax: 1.92 cm2 Mitral Valve IVRT: 101.50 ms [facility] [place] [address] 2 D/M-MODE ECHOCARDIOGRAM Name: BAILEEWALESKAH ALTUS Room #: 463-P [facility] IN M.R.#: [id number] Admission: 01/12/17 Attend Phys: Dg Huizar MD Discharge: Date of : 50 Date of Service: 01/15/17 1010 Report #: [id number] Pulmonary Valve PV Peak Jonas.: 0.78 m/s PV Peak Gr.: 2.45 mmHg Tricuspid Valve TR Peak Jonas.: 3.49 m/s RAP Estimate: 10.00 mmHg TR Peak Gr.: 48.70 mmHg PA Pressure: 59.00 mmHg Left Ventricle Left ventricle is dilated. Borderline concentric left ventricular hypertrophy. Left ventricular systolic function is severely decreased. LVEF is 25%. This study is not technically sufficient to allow evaluation of the LV diastolic function. Right Ventricle Right ventricle is markedly dilated. Right ventricle is hypokinetic. Moderator band is seen in the right ventricle. Atria Left atrium is dilated. Right atrium is dilated. Aortic Valve Aortic valve is calcified. Trace aortic regurgitation. There is no aortic valvular stenosis. Mitral Valve Mitral valve leaflets are mildly thickened. Moderate mitral regurgitation. No evidence of mitral valve stenosis. Tricuspid Valve The tricuspid valve is normal in structure. There is moderate to severe tricuspid regurgitation. The right atrial pressure is estimated at 10 mmHg. There is moderate pulmonary hypertension with an estimated PAP of 59 mmHg. Pulmonic Valve The pulmonary valve is normal in structure. Mild to moderate pulmonic regurgitation. Great Vessels The aortic root is normal in size. The ascending aorta is normal in size. IVC is dilated. Pericardium Pericardial effusion noted without signs of tamponade. [address] [address] 2 D/M-MODE ECHOCARDIOGRAM Name: SULEIMAN MOROCHO Room #: 463-P [facility] IN M.R.#: [id number] Admission: 01/12/17 Attend Phys: Dg Huizar MD Discharge: Date of : 50 Date of Service: 01/15/17 1010 Report #: [id number] <Conclusion> Left ventricle is dilated. Left ventricular systolic function is severely decreased. LVEF is 25%. Right ventricle is markedly dilated. Right ventricle is hypokinetic. Moderator band is seen in the right ventricle. Left atrium is dilated. Right atrium is dilated. Aortic valve is calcified. Trace aortic regurgitation. Mitral valve leaflets are mildly thickened. Moderate mitral regurgitation. The tricuspid valve is normal in structure. There is moderate to severe tricuspid regurgitation. The right atrial pressure is estimated at 10 mmHg. There is moderate pulmonary hypertension with an estimated PAP of 59 mmHg. The pulmonary valve is normal in structure. Mild to moderate pulmonic regurgitation. Pericardial effusion noted without signs of tamponade. <ELECTRONICALLY SIGNED> By: Jesús Magallon MD 01/15/17 1010 1010 1010 Jesús Magallon MD /INF
--- NOTE | ~2017-01-12 | EKG ---
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: Richa Khalil : 1950 Requested By: Jay Bhatt Order Number: [id number] MD: Juan Coelho Measurements Intervals [place] Rate: 65 P: 140 CT: 65 QRS: 217 QRSD: 169 T: 61 QT: 572 QTc: 595 Interpretive Statements Ventricular-paced complexes No further analysis attempted due to paced rhythm Baseline wander in lead(s) II,aVR Compared to ECG 09/25/2016 13:09:54 No significant changes Electronically Signed On 01-13-2017 16:43:03 CDT by Juan Coelho [email or web address] <ELECTRONICALLY SIGNED> By: Juan Coelho MD 01/13/17 1643 1654 1654 Juan Coelho MD /EPI
--- NOTE | ~2017-01-12 | HC ---
[facility] [place] [address] CONSULTATION Name: WALESKA MOROCHOH LUIS Room #: 463-P ADM IN M.R.#: [id number] Admission: 01/12/17 Attend Phys: Dg Huizar MD Discharge: Date of : 50 Report #: [id number] THIS REPORT FOR: //name// CC: Dg Farah DATE OF SERVICE: 01/16/2017 ENDOCRINE PROGRESS NOTE Glucoses stable without hypoglycemics. FBS appropriate at 110. Highest glucose past day equals 153 at 12:00. We will continue to monitor glucose and only treat if absolutely indicated. <ELECTRONICALLY SIGNED> By: Mitesh Alicia MD 01/16/17 1326 0830 1035 Mitesh Alicia MD /nt
[~2017-01-12 16:48] MED LIST changes: +ALTACE5 MG PO; +CARAFATE 11 GM/10 M1 PO; +NEXIUM40 MG PO; +REGLAN 10 MG TA10 MG PO
[2017-01-12 16:49] VITALS: BP 172/105
[2017-01-12 17:16] LABS: HEMATOCRIT 42.3 % (37.0-47.0); HEMOGLOBIN 13.8 gm/dL (12.0-15.0); MCH 28.6 pg (26.0-34.0); MCHC 32.7 g/dL (28.0-37.0); MCV 87.5 fL (80.0-100.0); PLATELET COUNT 159 thou/uL (150-400); RBC 4.83 mil/uL (4.20-5.00); RDW 15.1 % (10.5-14.5); WBC 2.9 thou/uL (4.0-11.0)
[2017-01-12 17:17] LABS: MANUAL DIFF YES
[2017-01-12 17:28] LABS: CALCIUM 8.6 mg/dL (8.5-10.1); CREATININE 0.9 mg/dL (0.6-1.0); POTASSIUM 3.5 mmol/L (3.5-5.1)
[2017-01-12 17:40] LABS: TROPONIN-I 1.29 ng/mL (<0.04-0.07)
[2017-01-12 17:45] LABS: ABSOLUTE NEUTROPHILS 2.3 thou/uL (1.4-8.2); ANISOCYTOSIS 1+; TOTAL CELL COUNT 100
[2017-01-12 18:49] LABS: URINE BILIRUBIN NEGATIVE (Negative); URINE BLOOD TRACE (Negative); URINE COLOR YELLOW; URINE GLUCOSE-RANDOM* NEGATIVE (Negative); URINE KETONES NEGATIVE (Negative); URINE NITRITE NEGATIVE (Negative); URINE PROTEIN (DIPSTICK) 2+ (Negative); URINE UROBILINOGEN 0.2 E.U./dl (0.2-1.0)
[2017-01-12 18:56] LABS: BACTERIA None Seen /HPF (None Seen); CASTS None Seen /LPF (None Seen); SQUAMOUS 0-3 Few /LPF (0-3); URINE RBC 0-2 Rare /HPF (0-2); URINE WBC None Seen /HPF (0-5)
[2017-01-12 18:57] LABS: CRYSTALS None Seen /LPF (None Seen)
[2017-01-12 19:11] VITALS: BP 140/109
[2017-01-12 19:40] VITALS: BP 159/99
[2017-01-13 00:16] VITALS: BP 140/74
[2017-01-13 04:32] VITALS: BP 139/58
[2017-01-13 05:07] LABS: HEMATOCRIT 37.3 % (37.0-47.0); HEMOGLOBIN 12.1 gm/dL (12.0-15.0); MCH 28.2 pg (26.0-34.0); MCHC 32.5 g/dL (28.0-37.0); MCV 86.6 fL (80.0-100.0); RBC 4.31 mil/uL (4.20-5.00); RDW 15.1 % (10.5-14.5); WBC 3.7 thou/uL (4.0-11.0)
[2017-01-13 05:21] LABS: ALBUMIN 3.1 g/dL (3.4-5.0); CALCIUM 8.9 mg/dL (8.5-10.1); CREATININE 1.1 mg/dL (0.6-1.0); TOTAL BILIRUBIN 0.9 mg/dL (<0.1-1.0); TOTAL PROTEIN 7.3 g/dL (6.4-8.2)
[2017-01-13 05:29] LABS: POTASSIUM 2.6 mmol/L (3.5-5.1); TROPONIN-I 1.06 ng/mL (<0.04-0.07)
[2017-01-13 08:05] VITALS: BP 133/76
[2017-01-13 08:43] LABS: MAGNESIUM 1.8 mg/dL (1.8-2.4)
[2017-01-13 12:38] VITALS: BP 108/61
[2017-01-13 15:30] LABS: MAGNESIUM 1.8 mg/dL (1.8-2.4); POTASSIUM 3.5 mmol/L (3.5-5.1)
[2017-01-13 16:07] VITALS: BP 117/56
[2017-01-13 19:32] VITALS: BP 110/71
[2017-01-14 04:25] VITALS: BP 138/84
[2017-01-14 05:08] LABS: INSULIN 10.6 uIU/mL (2.6-24.9)
[2017-01-14 06:11] LABS: MAGNESIUM 1.8 mg/dL (1.8-2.4); POTASSIUM 3.5 mmol/L (3.5-5.1)
[2017-01-14 08:33] VITALS: BP 137/65
[2017-01-14 17:44] VITALS: BP 137/63
[2017-01-14 18:53] VITALS: BP 117/76
[2017-01-15 03:20] VITALS: BP 131/81
[2017-01-15 04:52] LABS: HEMATOCRIT 37.8 % (37.0-47.0); HEMOGLOBIN 12.1 gm/dL (12.0-15.0); MCH 27.9 pg (26.0-34.0); MCV 87.2 fL (80.0-100.0); RBC 4.34 mil/uL (4.20-5.00); RDW 15.5 % (10.5-14.5); WBC 4.1 thou/uL (4.0-11.0)
[2017-01-15 05:04] LABS: CALCIUM 9.2 mg/dL (8.5-10.1); CREATININE 1.3 mg/dL (0.6-1.0)
[2017-01-15 05:05] LABS: POTASSIUM 4.5 mmol/L (3.5-5.1)
[2017-01-15 08:26] VITALS: BP 131/67
[2017-01-15 13:00] VITALS: BP 92/68
[2017-01-15 14:14] VITALS: BP 145/75
[2017-01-15 17:21] VITALS: BP 145/80
[2017-01-15 20:21] VITALS: BP 103/74
[2017-01-16 04:01] VITALS: BP 126/77
[2017-01-16 06:59] LABS: HEMOGLOBIN 11.5 gm/dL (12.0-15.0); MCH 27.9 pg (26.0-34.0); MCHC 31.9 g/dL (28.0-37.0); MCV 87.4 fL (80.0-100.0); RBC 4.12 mil/uL (4.20-5.00); RDW 15.3 % (10.5-14.5); WBC 3.3 thou/uL (4.0-11.0)
[2017-01-16 07:07] LABS: CALCIUM 9.4 mg/dL (8.5-10.1); CREATININE 1.6 mg/dL (0.6-1.0); POTASSIUM 4.7 mmol/L (3.5-5.1)
[2017-01-16 07:10] VITALS: BP 120/70
[2017-01-16 13:00] VITALS: BP 120/70
[2017-01-16 16:54] VITALS: BP 118/68
[2017-01-16 19:56] VITALS: BP 121/78
[2017-01-17 04:27] VITALS: BP 128/70
[2017-01-17 05:55] LABS: HEMATOCRIT 36.8 % (37.0-47.0); HEMOGLOBIN 11.6 gm/dL (12.0-15.0); MCH 27.7 pg (26.0-34.0); MCHC 31.5 g/dL (28.0-37.0); RBC 4.18 mil/uL (4.20-5.00); RDW 15.1 % (10.5-14.5); WBC 3.3 thou/uL (4.0-11.0)
[2017-01-17 06:11] LABS: CALCIUM 9.4 mg/dL (8.5-10.1); CREATININE 1.7 mg/dL (0.6-1.0); POTASSIUM 4.3 mmol/L (3.5-5.1)
[2017-01-17 07:00] VITALS: BP 129/91
[2017-01-17 12:41] VITALS: BP 112/59
[2017-01-17 15:12] VITALS: BP 120/70
== END 2017-01-17 16:21 | disposition home health service (06) | DRG 871 ==
LOC: ER 16:48 → 4W 18:20 → EROBS 18:20 → 4W 20:17
PROVIDERS: Hospitalist; Internal Medicine; Nurse Practitioner; Nurse Practitioner Family
PROC: 02HV33Z Insertion of Infusion Device into Superior Vena Cava, Percutaneous Approach (ICD-10-PCS; principal; 2017-01-13)
PROC: B548ZZA Ultrasonography of Superior Vena Cava, Guidance (ICD-10-PCS; principal; 2017-01-13)
DX: A41.9 Sepsis, unspecified organism (principal); G93.41 Metabolic encephalopathy; J18.9 Pneumonia, unspecified organism; J44.0 Chronic obstructive pulmonary disease with (acute) lower respiratory infection; I50.22 Chronic systolic (congestive) heart failure; N39.0 Urinary tract infection, site not specified; I13.0 Hypertensive heart and chronic kidney disease with heart failure and stage 1 through stage 4 chronic kidney disease, or unspecified chronic kidney disease; E66.9 Obesity, unspecified; E11.42 Type 2 diabetes mellitus with diabetic polyneuropathy; H40.9 Unspecified glaucoma; T68.XXXA Hypothermia, initial encounter; E11.649 Type 2 diabetes mellitus with hypoglycemia without coma; K59.00 Constipation, unspecified; N18.9 Chronic kidney disease, unspecified; E11.22 Type 2 diabetes mellitus with diabetic chronic kidney disease; Z95.0 Presence of cardiac pacemaker; Z68.29 Body mass index [BMI] 29.0-29.9, adult; Z90.710 Acquired absence of both cervix and uterus; Z79.899 Other long term (current) drug therapy; Z88.6 Allergy status to analgesic agent; Z91.040 Latex allergy status; Z88.8 Allergy status to other drugs, medicaments and biological substances; Z91.018 Allergy to other foods; Z82.49 Family history of ischemic heart disease and other diseases of the circulatory system; Z83.3 Family history of diabetes mellitus; Z90.49 Acquired absence of other specified parts of digestive tract; Z98.1 Arthrodesis status
CPT/HCPCS: 10045; 10047; 27000

== ENCOUNTER 2017-03-04 21:53 | Inpatient (IN) | payer OTHER ==
[~2017-03-04] VITALS: Ht 157.5 cm; Wt 80.7 kg
--- NOTE | ~2017-03-04 | EKG ---
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
[2017-03-04 21:54] VITALS: BP 150/85
[2017-03-04 22:23] LABS: ABSOLUTE NEUTROPHILS 2.7 thou/uL (1.4-8.2); BASOPHILS 0.7 % (0.0-2.0); EOSINOPHILS 0.5 % (0.0-3.0); HEMATOCRIT 38.8 % (37.0-47.0); HEMOGLOBIN 12.8 gm/dL (12.0-15.0); LYMPHOCYTES 16.3 % (24.0-44.0); MCH 26.8 pg (26.0-34.0); MCHC 32.9 g/dL (28.0-37.0); MCV 81.3 fL (80.0-100.0); MONOCYTES 9.9 % (1.0-8.0); PLATELET COUNT 134 thou/uL (150-400); POLYS 72.6 % (36.0-66.0); RBC 4.77 mil/uL (4.20-5.00); RDW 16.2 % (10.5-14.5); WBC 3.7 thou/uL (4.0-11.0)
[2017-03-04 22:32] LABS: MANUAL DIFF NO
[2017-03-04 22:36] LABS: CALCIUM 9.3 mg/dL (8.5-10.1)
[2017-03-04 22:48] LABS: ALBUMIN 3.4 g/dL (3.4-5.0); TOTAL BILIRUBIN 1.9 mg/dL (<0.1-1.0); TOTAL PROTEIN 7.7 g/dL (6.4-8.2)
[2017-03-04 22:50] LABS: TROPONIN-I 1.31 ng/mL (<0.04-0.07)
[2017-03-04 22:55] LABS: ABG SAMPLE TYPE ARTERIAL; BE(vivo) 9.4 mmol/L (-2 to +3); HCO3 34.6 mmol/L (22.0-26.0); O2(CT) 18.8 mL/dL (15.0-23.0); O2Hb 97.7 % (92.0-98.0); PCO2 48.7 mmHg (35.0-45.0); PO2 140.8 mmHg (80.0-100.0); pH 7.469 (7.360-7.450); sO2 98.9 % (92.0-98.0); tCO2 36.1 mmol/L (24.0-30.0)
[2017-03-04 22:56] LABS: STICK SITE L.RADIAL
[2017-03-05] VITALS (25 sets, daily range): BP systolic 92–151; BP diastolic 37–116
[2017-03-05 06:42] LABS: HEMATOCRIT 36.9 % (37.0-47.0); HEMOGLOBIN 12.2 gm/dL (12.0-15.0); MCH 26.9 pg (26.0-34.0); MCHC 33.1 g/dL (28.0-37.0); MCV 81.4 fL (80.0-100.0); RBC 4.53 mil/uL (4.20-5.00); RDW 16.3 % (10.5-14.5)
[2017-03-05 07:08] LABS: CALCIUM 8.6 mg/dL (8.5-10.1); CREATININE 0.9 mg/dL (0.6-1.0)
[2017-03-05 07:10] LABS: POTASSIUM 3.3 mmol/L (3.5-5.1); TROPONIN-I 1.26 ng/mL (<0.04-0.07)
[2017-03-05 15:11] LABS: URINE BILIRUBIN NEGATIVE (Negative); URINE BLOOD TRACE (Negative); URINE COLOR YELLOW; URINE GLUCOSE-RANDOM* NEGATIVE (Negative); URINE KETONES NEGATIVE (Negative); URINE NITRITE NEGATIVE (Negative); URINE PROTEIN (DIPSTICK) TRACE (Negative); URINE SPECIFIC GRAVITY <= 1.005 (1.003-1.035)
[2017-03-05 15:21] LABS: BACTERIA 1-9 Few /HPF (None Seen); CASTS None Seen /LPF (None Seen); SQUAMOUS 0-3 Few /LPF (0-3); URINE RBC 3-10 Few /HPF (0-2)
[2017-03-05 15:22] LABS: CRYSTALS None Seen /LPF (None Seen); WBC CLUMPS Few (None Seen)
[2017-03-06] VITALS (14 sets, daily range): BP systolic 82–132; BP diastolic 57–93
[2017-03-06 05:48] LABS: HEMATOCRIT 39.1 % (37.0-47.0); HEMOGLOBIN 12.6 gm/dL (12.0-15.0); MCH 26.6 pg (26.0-34.0); MCHC 32.2 g/dL (28.0-37.0); MCV 82.6 fL (80.0-100.0); RBC 4.74 mil/uL (4.20-5.00); RDW 16.5 % (10.5-14.5); WBC 3.4 thou/uL (4.0-11.0)
[2017-03-06 05:55] LABS: ALBUMIN 2.9 g/dL (3.4-5.0); PHOSPHORUS 3.3 mg/dL (2.5-4.9); POTASSIUM 3.6 mmol/L (3.5-5.1)
[2017-03-07 00:01] VITALS: BP 113/63
[2017-03-07 03:51] LABS: ALBUMIN 2.7 g/dL (3.4-5.0); CALCIUM 8.8 mg/dL (8.5-10.1); CREATININE 1.2 mg/dL (0.6-1.0); POTASSIUM 3.4 mmol/L (3.5-5.1)
[2017-03-07 04:00] VITALS: BP 107/60
[2017-03-07 08:22] VITALS: BP 123/85
[2017-03-07 09:50] VITALS: BP 127/77
[2017-03-07 12:01] VITALS: BP 125/77
== END 2017-03-07 16:27 | disposition home health service (06) | DRG 637 ==
LOC: ER 21:53 → ICU 23:11 → EROBS 23:11 → ICU 03-05 00:15
PROVIDERS: Hospitalist; Nurse Practitioner Family; Physician Assistant
DX: E11.649 Type 2 diabetes mellitus with hypoglycemia without coma (principal); G93.41 Metabolic encephalopathy; I42.8 Other cardiomyopathies; I50.22 Chronic systolic (congestive) heart failure; I13.0 Hypertensive heart and chronic kidney disease with heart failure and stage 1 through stage 4 chronic kidney disease, or unspecified chronic kidney disease; E16.2 Hypoglycemia, unspecified; E11.65 Type 2 diabetes mellitus with hyperglycemia; E11.42 Type 2 diabetes mellitus with diabetic polyneuropathy; J44.9 Chronic obstructive pulmonary disease, unspecified; H40.9 Unspecified glaucoma; E87.6 Hypokalemia; E11.22 Type 2 diabetes mellitus with diabetic chronic kidney disease; Z60.2 Problems related to living alone; N18.9 Chronic kidney disease, unspecified; E78.5 Hyperlipidemia, unspecified; T68.XXXA Hypothermia, initial encounter; Z90.49 Acquired absence of other specified parts of digestive tract; Z95.0 Presence of cardiac pacemaker; Z90.710 Acquired absence of both cervix and uterus; Z88.8 Allergy status to other drugs, medicaments and biological substances; Z88.6 Allergy status to analgesic agent; Z91.02 Food additives allergy status; Z91.040 Latex allergy status; Z82.49 Family history of ischemic heart disease and other diseases of the circulatory system; Z83.3 Family history of diabetes mellitus; Z79.899 Other long term (current) drug therapy; Z79.84 Long term (current) use of oral hypoglycemic drugs
CPT/HCPCS: 10078